=== PATIENT | female | born 1960 | race Caucasian/White ===

== ENCOUNTER 2017-08-03 11:22 | Observation (INO) ==
[2017-08-03 15:02] LABS: Basophils % 0.8 % (0.0-0.8); Eosinophils % 1.7 % (0.00-10.9); Hematocrit 43.4 VOL% (35.7-47.0); Hemoglobin 14.9 GM/DL (12.0-16.0); Immature Granulocytes % 0.5 %; Lymphocytes % 26.9 % (21.3-54.2); Mean Corpuscular HGB Conc 34.3 GM/DL (32-36); Mean Corpuscular Hemoglobin 31 PG (27-34); Mean Corpuscular Volume 91.4 FL (87-102); Mean Platelet Volume 10.9 FL (9.6-12.0); Monocytes % 9.7 % (1.7-12.7); Neutrophils % 60.4 % (38.7-73.9); Platelet Count 269 T/CUMM (130-400); Red Blood Count 4.75 MC/CUMM (3.8-5.5); Red Cell Distribution Width 12.1 % (9.3-17.3); White Blood Count 6.6 T/CUMM (4-12)
[2017-08-03 15:03] LABS: Basophils # 0.1 10*3/uL (0.0-0.2); Eosinophils # 0.1 10*3/uL (0.0-0.87); Immature Granulocytes Absolute 0.03 #; Lymphocytes # 1.8 10*3/uL (1.4-4.0); Monocytes # 0.6 10*3/uL (0.11-0.8)
[2017-08-03 15:10] LABS: INR 0.9; Partial Thromboplastin Time 23.4 SECS (0-40)
[2017-08-03 15:28] LABS: Alanine Aminotransferase 37 U/L (13-56); Albumin 4.2 G/DL (3.4-5.0); Alkaline Phosphatase 90 U/L (45-117); Aspartate Amino Transferase 20 U/L (0-37); Blood Urea Nitrogen 16 MG/DL (7-18); Calcium 8.6 MG/DL (8.5-10.1); Glucose 76 MG/DL (74-106); Osmolality,Calculated 278.4 MOS/KG (273-304); Potassium 4.2 MMOL/L (3.5-5.1); Sodium 140 MMOL/L (136-145); Total Protein 7.1 G/DL (6.4-8.3); Troponin I Only < 0.015 NG/ML (0.00-0.045)
[2017-08-03] MEDS ORDERED: ACETAMINOPHEN 325 MG TABLET PO PRN (17:03)
[2017-08-03] MEDS ORDERED: DOCUSATE SODIUM 100 MG CAPSULE PO PRN (17:03)
[2017-08-03] MEDS ORDERED: ONDANSETRON 4 MG/2 ML VIAL IV PRN (17:03)
[2017-08-03] MEDS ORDERED: MAGNESIUM SULF RIDER 4 GM in PREMIX 1 EACH IV PRN (17:03)
[2017-08-03] MEDS ORDERED: diphenhydrAMINE CAP 25 MG CAPSULE PO PRN (17:03)
[2017-08-03] MEDS ORDERED: ZALEPLON 5 MG CAPSULE PO PRN (17:03)
[2017-08-03] MEDS ORDERED: MAGNESIUM SULF RIDER 2 GM in PREMIX 1 EACH IV PRN (17:03)
[2017-08-03] MEDS ORDERED: guaiFENesin/DM ER 600-30 MG TABLET PO PRN (17:03)
[2017-08-03] MEDS ORDERED: POTASSIUM CHLORIDE 20 MEQ TABLET PO PRN (17:03)
[2017-08-03] MEDS ORDERED: CLOPIDOGREL 300 MG TABLET PO STA (17:14)
[2017-08-03] MEDS ORDERED: hydrALAZINE 20 MG/1 ML VIAL IV PRN (17:16)
[2017-08-03] MEDS ORDERED: CLOPIDOGREL 300 MG TABLET ONE (17:48)
[2017-08-03] MEDS ORDERED: PRAVASTATIN 40 MG TABLET PO SCH (21:00)
[2017-08-03] MEDS ORDERED: FAMOTIDINE 20 MG TABLET NG SCH (21:00)
[2017-08-03] MEDS ORDERED: LISINOPRIL 20 MG TABLET PO SCH (21:00)
[2017-08-03] MEDS ORDERED: CLOPIDOGREL 75 MG TABLET PO SCH (21:00)
[2017-08-03] MEDS ORDERED: ISOSORBIDE MONONITRATE 30 MG TABLET PO SCH (21:00)
[2017-08-03] MEDS: ASCORBIC ACID 500 MG TABLET PO SCH (21:34)
[2017-08-03] MEDS: APIXABAN 5 MG TABLET PO SCH (21:34)
[2017-08-03] MEDS: CARVEDILOL 3.125 MG TABLET PO SCH (21:34)
[2017-08-03 21:59] LABS: Troponin I Only < 0.015 NG/ML (0.00-0.045)
[2017-08-04 05:12] LABS: Basophils # 0.1 10*3/uL (0.0-0.2); Basophils % 1.1 % (0.0-0.8); Eosinophils # 0.1 10*3/uL (0.0-0.87); Eosinophils % 2.5 % (0.00-10.9); Hematocrit 41.5 VOL% (35.7-47.0); Hemoglobin 14.4 GM/DL (12.0-16.0); Immature Granulocytes % 0.2 %; Immature Granulocytes Absolute 0.01 #; Lymphocytes # 1.8 10*3/uL (1.4-4.0); Lymphocytes % 32.1 % (21.3-54.2); Mean Corpuscular HGB Conc 34.7 GM/DL (32-36); Mean Corpuscular Hemoglobin 31 PG (27-34); Mean Platelet Volume 10.7 FL (9.6-12.0); Monocytes # 0.6 10*3/uL (0.11-0.8); Monocytes % 10.6 % (1.7-12.7); Neutrophils % 53.5 % (38.7-73.9); Platelet Count 232 T/CUMM (130-400); Red Blood Count 4.61 MC/CUMM (3.8-5.5); Red Cell Distribution Width 12.4 % (9.3-17.3); White Blood Count 5.6 T/CUMM (4-12)
[2017-08-04 05:45] LABS: Calcium 8.4 MG/DL (8.5-10.1); Magnesium 2.1 MG/DL (1.8-2.4); Osmolality,Calculated 279.4 MOS/KG (273-304); Potassium 4.2 MMOL/L (3.5-5.1); Risk Ratio 2.94
[2017-08-04] MEDS ORDERED: amLODIPine 5 MG TABLET PO SCH (09:00)
[2017-08-04] MEDS: APIXABAN 5 MG TABLET PO SCH (09:21)
[2017-08-04] MEDS: ASCORBIC ACID 500 MG TABLET PO SCH (09:22)
[2017-08-04] MEDS: CARVEDILOL 3.125 MG TABLET PO SCH (09:22)
[2017-08-04 12:35] VITALS: BP 116/77
[2017-08-04] MEDS ORDERED: CLOPIDOGREL 75 MG TABLET PO SCH (21:00)
== END 2017-08-04 16:04 | disposition home or self-care (01) ==
LOC: N.EDINP 11:22 → N.ED 11:22 → N.EDINP 18:11 → N.TELEN 18:21
PROVIDERS: ADMIT Internal Medicine Clinical Cardiac Electrophysiology; ATTEND Internal Medicine Clinical Cardiac Electrophysiology

== ENCOUNTER 2019-09-12 18:18 | Inpatient (IN) ==
[2019-09-12] MEDS ORDERED: DILTIAZEM 50 MG/10 ML VIAL IV STA (18:45)
[2019-09-12] MEDS ORDERED: ALUM/MAG/SIMETH/LIDO VISC 1:1 30 ML BOTTLE PO STA (18:45)
[2019-09-12] MEDS ORDERED: ASPIRIN 325 MG TABLET PO STA (18:45)
[2019-09-12] MEDS ORDERED: ONDANSETRON 4 MG/2 ML VIAL IV STA (18:45)
[2019-09-12 19:00] LABS: Basophils # 0.1 10*3/uL (0.0-0.2); Basophils % 0.6 % (0.0-0.8); Eosinophils # 0.2 10*3/uL (0.0-0.87); Eosinophils % 1.8 % (0.00-10.9); Hematocrit 47.4 VOL% (35.7-47.0); Hemoglobin 15.9 GM/DL (12.0-16.0); Immature Granulocytes % 0.2 %; Immature Granulocytes Absolute 0.02 #; Lymphocytes # 2.3 10*3/uL (1.4-4.0); Lymphocytes % 27.7 % (21.3-54.2); Mean Corpuscular HGB Conc 33.5 GM/DL (32-36); Mean Corpuscular Volume 96.3 FL (87-102); Mean Platelet Volume 9.9 FL (9.6-12.0); Monocytes % 9.8 % (1.7-12.7); Neutrophils % 59.9 % (38.7-73.9); Platelet Count 251 T/CUMM (130-400); Red Blood Count 4.92 MC/CUMM (3.8-5.5); Red Cell Distribution Width 13.3 % (9.3-17.3); White Blood Count 8.4 T/CUMM (4-12)
[2019-09-12] MEDS ORDERED: dilTIAZem Drip 125 MG/125 ML PREMIX IV SCH (19:00)
[2019-09-12 19:20] LABS: INR 2.1
[2019-09-12 19:23] LABS: PT Patient Result 22.6 SECS (9.6-12.2)
[2019-09-12 19:37] LABS: Alanine Aminotransferase 49 U/L (13-56); Albumin 4.1 G/DL (3.4-5.0); Alkaline Phosphatase 119 U/L (45-117); Aspartate Amino Transferase 22 U/L (0-37); Bilirubin,Total < 0.39 MG/DL (0.2-1.0); Blood Urea Nitrogen 21 MG/DL (7-18); Calcium 9.2 MG/DL (8.5-10.1); Estimated Glom Filtration Rate 107 ML/MIN; Glucose 107 MG/DL (74-106); Total Protein 7.5 G/DL (6.4-8.3)
[2019-09-12] MEDS ORDERED: METOPROLOL TARTRATE 5 MG/5 ML VIAL IV STA (20:13)
[2019-09-12] MEDS ORDERED: METOPROLOL TARTRATE 5 MG/5 ML VIAL IV ONE (20:14)
[2019-09-12] MEDS ORDERED: ACETAMINOPHEN 325 MG TABLET PO PRN (20:37)
[2019-09-13] MEDS ORDERED: predniSONE 10 MG TABLET PO PRN (07:35)
[2019-09-13] MEDS ORDERED: NITROGLYCERIN SL 0.4 MG TABLET SL PRN (07:35)
[2019-09-13] MEDS ORDERED: amLODIPine 5 MG TABLET PO SCH (09:00)
[2019-09-13] MEDS ORDERED: PANTOPRAZOLE 40 MG TABLET PO SCH (09:00)
[2019-09-13] MEDS ORDERED: predniSONE 5 MG TABLET PO SCH (09:00)
[2019-09-13] MEDS ORDERED: FOLIC ACID 1 MG TABLET PO SCH (09:00)
[2019-09-13] MEDS ORDERED: ASCORBIC ACID 500 MG TABLET PO SCH (09:00)
[2019-09-13] MEDS ORDERED: RANOLAZINE 500 MG TABLET PO ONE (09:20)
[2019-09-13] MEDS ORDERED: METOPROLOL TARTRATE 25 MG TABLET PO SCH (09:30)
[2019-09-13 12:10] VITALS: BP 120/79
[2019-09-13] MEDS ORDERED: WARFARIN 5 MG TABLET PO SCH (18:00)
[2019-09-13] MEDS ORDERED: CLOPIDOGREL 75 MG TABLET PO SCH (21:00)
[2019-09-13] MEDS ORDERED: ISOSORBIDE MONONITRATE 30 MG TABLET PO SCH (21:00)
[2019-09-13] MEDS ORDERED: SIMVASTATIN 20 MG TABLET PO SCH (21:00)
[2019-09-13] MEDS ORDERED: lisinopriL 20 MG TABLET PO SCH (21:00)
== END 2019-09-13 16:30 | disposition home or self-care (01) | DRG 310 ==
LOC: N.ED 18:18 → N.EDINP 20:37 → SUPCPDRO 20:37 → N.EDINP 22:17 → N.TELES 22:32
PROVIDERS: ADMIT Internal Medicine Geriatric Medicine; ATTEND Internal Medicine Geriatric Medicine

== ENCOUNTER 2020-06-28 09:05 | Observation (INO) ==
[2020-06-28] MEDS ORDERED: DILTIAZEM 50 MG/10 ML VIAL IV STA (09:57)
[2020-06-28 10:26] LABS: Basophils % 0.4 % (0.0-0.8); Eosinophils % 0.7 % (0.00-10.9); Hemoglobin 17.5 GM/DL (12.0-16.0); Immature Granulocytes % 0.4 %; Immature Granulocytes Absolute 0.01 #; Lymphocytes # 0.9 10*3/uL (1.4-4.0); Lymphocytes % 31.9 % (21.3-54.2); Mean Corpuscular Volume 91.1 FL (87-102); Mean Platelet Volume 9.3 FL (9.6-12.0); Monocytes % 12.5 % (1.7-12.7); Neutrophils % 54.1 % (38.7-73.9); Platelet Count 175 T/CUMM (130-400); Red Blood Count 5.49 MC/CUMM (3.8-5.5); Red Cell Distribution Width 13.2 % (9.3-17.3); White Blood Count 2.7 T/CUMM (4-12)
[2020-06-28] MEDS: dilTIAZem Drip 125 MG/125 ML PREMIX IV SCH (10:30)
[2020-06-28 10:36] LABS: INR 3.7
[2020-06-28 10:55] LABS: Albumin 3.6 G/DL (3.4-5.0); Bilirubin,Total 0.5 MG/DL (0.2-1.0); Calcium 8.7 MG/DL (8.5-10.1); Osmolality,Calculated 277.4 MOS/KG (273-304); Total Protein 6.8 G/DL (6.4-8.3)
[2020-06-28] MEDS ORDERED: MAGNESIUM SULF RIDER 4 GM in PREMIX 1 EACH IV PRN (11:10)
[2020-06-28] MEDS ORDERED: ONDANSETRON 4 MG/2 ML VIAL IV PRN (11:10)
[2020-06-28] MEDS ORDERED: MAGNESIUM SULF RIDER 2 GM in PREMIX 1 EACH IV PRN (11:10)
[2020-06-28] MEDS: SODIUM CHLORIDE 0.45% 1,000 ML IV SCH ×3 (11:30→22:53)
[2020-06-28] MEDS ORDERED: NITROGLYCERIN SL 0.4 MG TABLET SL PRN (11:33)
[2020-06-28] MEDS ORDERED: RANOLAZINE 500 MG TABLET PO ONE (12:37)
[2020-06-28] MEDS: METOPROLOL TARTRATE 25 MG TABLET PO SCH ×2 (15:01→20:36)
[2020-06-28] MEDS ORDERED: WARFARIN 5 MG TABLET PO SCH (18:00)
[2020-06-28] MEDS: ASCORBIC ACID 500 MG TABLET PO SCH (20:36)
[2020-06-28] MEDS ORDERED: ISOSORBIDE MONONITRATE 30 MG TABLET PO SCH (21:00)
[2020-06-28] MEDS ORDERED: lisinopriL 20 MG TABLET PO SCH (21:00)
[2020-06-28] MEDS ORDERED: ROSUVASTATIN 10 MG TABLET PO SCH (21:00)
[2020-06-28] MEDS ORDERED: CLOPIDOGREL 75 MG TABLET PO SCH (21:00)
[2020-06-29] MEDS: dilTIAZem Drip 125 MG/125 ML PREMIX IV SCH (00:50)
[2020-06-29] MEDS: METOPROLOL TARTRATE 25 MG TABLET PO SCH (02:11)
[2020-06-29 06:02] LABS: Basophils % 0.6 % (0.0-0.8); Eosinophils # 0.1 10*3/uL (0.0-0.87); Eosinophils % 0.9 % (0.00-10.9); Hematocrit 38.9 VOL% (35.7-47.0); Hemoglobin 13.3 GM/DL (12.0-16.0); Immature Granulocytes % 0.4 %; Immature Granulocytes Absolute 0.02 #; Lymphocytes # 2.1 10*3/uL (1.4-4.0); Lymphocytes % 38.8 % (21.3-54.2); Mean Corpuscular HGB Conc 34.2 GM/DL (32-36); Mean Platelet Volume 9.8 FL (9.6-12.0); Monocytes % 14.7 % (1.7-12.7); Neutrophils % 44.6 % (38.7-73.9); Platelet Count 233 T/CUMM (130-400); Red Blood Count 4.14 MC/CUMM (3.8-5.5); Red Cell Distribution Width 13.2 % (9.3-17.3); White Blood Count 5.4 T/CUMM (4-12)
[2020-06-29 06:04] LABS: Calcium 8.4 MG/DL (8.5-10.1); Osmolality,Calculated 279.4 MOS/KG (273-304); Potassium 3.9 MMOL/L (3.5-5.1)
[2020-06-29 06:12] LABS: Risk Ratio 7.44; Troponin I < 0.015 NG/ML (0.00-0.045); VLDL CHOLESTEROL 120.2 MG/DL
[2020-06-29] MEDS: SODIUM CHLORIDE 0.45% 1,000 ML IV SCH (06:55)
[2020-06-29 07:01] LABS: Anisocytosis 1+; Platelet Estimate Normal; Spherocytes Few
[2020-06-29] MEDS ORDERED: MIDAZOLAM 10 MG/2 ML VIAL ONE (08:19)
[2020-06-29] MEDS ORDERED: MIDAZOLAM 10 MG/2 ML VIAL IV ONE (08:29)
[2020-06-29] MEDS ORDERED: PANTOPRAZOLE 40 MG TABLET PO SCH (09:00)
[2020-06-29] MEDS ORDERED: VITAMIN E 400 UNIT CAPSULE PO SCH (09:00)
[2020-06-29] MEDS ORDERED: amLODIPine 5 MG TABLET PO SCH (09:00)
[2020-06-29] MEDS ORDERED: predniSONE 5 MG TABLET PO SCH (09:00)
[2020-06-29] MEDS ORDERED: FOLIC ACID 1 MG TABLET PO SCH (09:00)
[2020-06-29] MEDS ORDERED: OMEPRAZOLE 20 MG PO SCH (09:00)
[2020-06-29] MEDS ORDERED: METOPROLOL TARTRATE 25 MG TABLET PO SCH (10:00)
[2020-06-29 12:36] VITALS: BP 135/73
[2020-06-29] MEDS: ASCORBIC ACID 500 MG TABLET PO SCH (12:37)
[2020-07-02] MEDS ORDERED: METHOTREXATE 2.5 MG TABLET PO SCH (09:00)
[2020-07-02] MEDS ORDERED: WARFARIN 5 MG TABLET PO SCH (18:00)
== END 2020-06-29 12:22 | disposition home or self-care (01) ==
LOC: N.EDINP 09:05 → N.ED 09:05 → N.TELEN 13:50
PROVIDERS: ADMIT Internal Medicine Cardiovascular Disease; ATTEND Internal Medicine Cardiovascular Disease

== ENCOUNTER 2020-10-15 02:59 | Observation (INO) ==
[2020-10-15] MEDS ORDERED: DILTIAZEM 50 MG/10 ML VIAL IV STA (03:21)
[2020-10-15] MEDS ORDERED: ONDANSETRON 4 MG/2 ML VIAL IV STA (03:21)
[2020-10-15] MEDS ORDERED: ASPIRIN 325 MG TABLET PO STA (03:21)
[2020-10-15] MEDS ORDERED: NITROGLYCERIN 2% OINT 1 INCH/GM PACK TOP STA (03:21)
[2020-10-15] MEDS ORDERED: MORPHINE 4 MG/1 ML VIAL IV STA (03:21)
[2020-10-15 03:23] LABS: Basophils # 0.1 10*3/uL (0.0-0.2); Basophils % 0.8 % (0.0-0.8); Eosinophils # 0.2 10*3/uL (0.0-0.87); Eosinophils % 2.3 % (0.00-10.9); Hematocrit 43.6 VOL% (35.7-47.0); Hemoglobin 14.3 GM/DL (12.0-16.0); Immature Granulocytes % 0.3 %; Immature Granulocytes Absolute 0.02 #; Lymphocytes # 1.9 10*3/uL (1.4-4.0); Mean Corpuscular HGB Conc 32.8 GM/DL (32-36); Mean Corpuscular Volume 95.8 FL (87-102); Mean Platelet Volume 10.1 FL (9.6-12.0); Monocytes % 10.9 % (1.7-12.7); Neutrophils % 57.7 % (38.7-73.9); Platelet Count 241 T/CUMM (130-400); Red Blood Count 4.55 MC/CUMM (3.8-5.5); Red Cell Distribution Width 13.4 % (9.3-17.3); White Blood Count 6.6 T/CUMM (4-12)
[2020-10-15] MEDS ORDERED: DILTIAZEM INJ 100 MG in SODIUM CHLORIDE 0.9% 100 ML IV SCH (03:30)
[2020-10-15 03:43] LABS: Albumin 3.5 G/DL (3.4-5.0); Bilirubin,Total 0.4 MG/DL (0.2-1.0); Calcium 8.8 MG/DL (8.5-10.1); INR 3.3; Osmolality,Calculated 278.8 MOS/KG (273-304); PT Patient Result 32.9 SECS (9.8-11.9); Potassium 4.1 MMOL/L (3.5-5.1)
[2020-10-15] MEDS ORDERED: GLUCAGON 1 MG VIAL IM PRN (04:48)
[2020-10-15] MEDS ORDERED: ACETAMINOPHEN 325 MG TABLET PO PRN (04:48)
[2020-10-15] MEDS ORDERED: DEXTROSE 50% 25 GM/50 ML VIAL IV PRN (04:48)
[2020-10-15] MEDS ORDERED: ONDANSETRON 4 MG/2 ML VIAL IV PRN (04:48)
[2020-10-15 12:09] VITALS: BP 98/51
[2020-10-15] MEDS ORDERED: CLOPIDOGREL 75 MG TABLET PO SCH (21:00)
[2020-10-15] MEDS ORDERED: ROSUVASTATIN 10 MG TABLET PO SCH (21:00)
== END 2020-10-15 14:01 | disposition home or self-care (01) ==
LOC: N.EDINP 02:59 → N.ED 02:59 → N.EDINP 05:42 → N.TELES 06:13
PROVIDERS: ADMIT Internal Medicine; ATTEND Internal Medicine

== ENCOUNTER 2021-05-04 23:38 | Observation (INO) ==
[2021-05-05] MEDS ORDERED: DILTIAZEM 50 MG/10 ML VIAL IV STA ×2 (00:06→00:44)
[2021-05-05] MEDS ORDERED: ASPIRIN 325 MG TABLET PO STA (00:06)
[2021-05-05 00:10] LABS: Basophils # 0.1 10*3/uL (0.0-0.2); Basophils % 0.7 % (0.0-0.8); Eosinophils # 0.1 10*3/uL (0.0-0.87); Eosinophils % 1.8 % (0.00-10.9); Hematocrit 43.7 VOL% (35.7-47.0); Hemoglobin 14.5 GM/DL (12.0-16.0); Immature Granulocytes % 0.1 %; Immature Granulocytes Absolute 0.01 #; Lymphocytes # 2.2 10*3/uL (1.4-4.0); Lymphocytes % 31.5 % (21.3-54.2); Mean Corpuscular HGB Conc 33.2 GM/DL (32-36); Mean Corpuscular Volume 94.6 FL (87-102); Mean Platelet Volume 9.9 FL (9.6-12.0); Monocytes % 12.2 % (1.7-12.7); Neutrophils % 53.7 % (38.7-73.9); Platelet Count 242 T/CUMM (130-400); Red Blood Count 4.62 MC/CUMM (3.8-5.5); Red Cell Distribution Width 13.7 % (9.3-17.3); White Blood Count 6.8 T/CUMM (4-12)
[2021-05-05 00:18] LABS: INR 1.7
[2021-05-05 00:43] LABS: Albumin 3.9 G/DL (3.4-5.0); Bilirubin,Total 0.7 MG/DL (0.20-1.00); Calcium 8.9 MG/DL (8.5-10.1); Osmolality,Calculated 277.8 MOS/KG (273-304); Potassium 3.9 MMOL/L (3.5-5.1); Total Protein 6.8 G/DL (6.4-8.2)
[2021-05-05] MEDS ORDERED: SODIUM CHLORIDE 0.9% 500 ML IV STA (01:01)
[2021-05-05] MEDS: DILTIAZEM INJ 100 MG in SODIUM CHLORIDE 0.9% 100 ML IV SCH (01:30)
[2021-05-05] MEDS ORDERED: MAGNESIUM SULF RIDER 2 GM/50 ML PREMIX IV PRN (01:41)
[2021-05-05] MEDS ORDERED: DEXTROSE 50% 25 GM/50 ML VIAL IV PRN (01:41)
[2021-05-05] MEDS ORDERED: GLUCAGON 1 MG VIAL IM PRN (01:41)
[2021-05-05] MEDS ORDERED: MAGNESIUM SULF RIDER 4 GM/100 ML PREMIX IV PRN (01:41)
[2021-05-05] MEDS ORDERED: POTASSIUM CHLORIDE 20 MEQ TABLET PO PRN (01:43)
[2021-05-05] MEDS ORDERED: SIMETHICONE CHEW 125 MG TABLET PO PRN (01:43)
[2021-05-05] MEDS ORDERED: POTASSIUM CHLORIDE RIDER 10 MEQ/100 ML PREMIX IV PRN (01:43)
[2021-05-05] MEDS ORDERED: DOCUSATE SODIUM 100 MG CAPSULE PO PRN (01:43)
[2021-05-05] MEDS ORDERED: ONDANSETRON 4 MG/2 ML VIAL IV PRN (01:43)
[2021-05-05 03:14] LABS: Calcium 8.2 MG/DL (8.5-10.1); Osmolality,Calculated 280.5 MOS/KG (273-304); Potassium 4.2 MMOL/L (3.5-5.1); Risk Ratio 3.45; VLDL Cholesterol 92.4 MG/DL
[2021-05-05] MEDS: PANTOPRAZOLE 40 MG TABLET PO SCH (09:34)
[2021-05-05] MEDS: DILTIAZEM 30 MG TABLET PO SCH ×3 (09:35→21:14)
[2021-05-05] MEDS: ASCORBIC ACID 500 MG TABLET PO SCH ×2 (09:35→21:14)
[2021-05-05] MEDS ORDERED: ALBUTEROL 2.5 MG/3 ML NEB RESP TX ONE (13:54)
[2021-05-05] MEDS: ALBUTEROL 2.5 MG/3 ML NEB RESP TX SCH ×2 (14:34→19:40)
[2021-05-05] MEDS ORDERED: WARFARIN 5 MG TABLET PO SCH (18:00)
[2021-05-05] MEDS ORDERED: ISOSORBIDE MONONITRATE 30 MG TABLET PO SCH (21:00)
[2021-05-05] MEDS ORDERED: CLOPIDOGREL 75 MG TABLET PO SCH (21:00)
[2021-05-05] MEDS ORDERED: ROSUVASTATIN 10 MG TABLET PO SCH (21:00)
[2021-05-05] MEDS: ACETAMINOPHEN 325 MG TABLET PO PRN (21:20)
[2021-05-06] MEDS: ALBUTEROL 2.5 MG/3 ML NEB RESP TX SCH ×3 (00:17→07:35)
[2021-05-06 05:25] LABS: Basophils # 0.1 10*3/uL (0.0-0.2); Basophils % 0.7 % (0.0-0.8); Eosinophils # 0.1 10*3/uL (0.0-0.87); Eosinophils % 1.6 % (0.00-10.9); Hematocrit 39.9 VOL% (35.7-47.0); Hemoglobin 13.3 GM/DL (12.0-16.0); Immature Granulocytes % 0.4 %; Immature Granulocytes Absolute 0.03 #; Lymphocytes # 1.7 10*3/uL (1.4-4.0); Lymphocytes % 24.4 % (21.3-54.2); Mean Corpuscular HGB Conc 33.3 GM/DL (32-36); Mean Platelet Volume 9.7 FL (9.6-12.0); Monocytes % 10.8 % (1.7-12.7); Neutrophils % 62.1 % (38.7-73.9); Platelet Count 216 T/CUMM (130-400); Red Cell Distribution Width 13.8 % (9.3-17.3); White Blood Count 6.8 T/CUMM (4-12)
[2021-05-06 06:05] LABS: Calcium 8.2 MG/DL (8.5-10.1); Osmolality,Calculated 279.5 MOS/KG (273-304); Potassium 4.1 MMOL/L (3.5-5.1)
[2021-05-06] MEDS ORDERED: METHOTREXATE 2.5 MG TABLET PO SCH (06:25)
[2021-05-06] MEDS: DILTIAZEM INJ 100 MG in SODIUM CHLORIDE 0.9% 100 ML IV SCH (08:15)
[2021-05-06 08:28] VITALS: BP 143/70
[2021-05-06] MEDS: ACETAMINOPHEN 325 MG TABLET PO PRN (08:42)
[2021-05-06] MEDS: DILTIAZEM 30 MG TABLET PO SCH (08:42)
[2021-05-06] MEDS: PANTOPRAZOLE 40 MG TABLET PO SCH (08:42)
[2021-05-06] MEDS: ASCORBIC ACID 500 MG TABLET PO SCH (08:42)
[2021-05-06] MEDS ORDERED: WARFARIN 2.5 MG TABLET PO SCH (18:00)
== END 2021-05-06 10:33 | disposition home or self-care (01) ==
LOC: N.ED 23:38 → N.EDINP 23:38 → N.TELES 05-05 02:53
PROVIDERS: ADMIT Internal Medicine; ATTEND Internal Medicine

== ENCOUNTER 2021-11-14 19:33 | Observation (INO) ==
[2021-11-14] MEDS ORDERED: DILTIAZEM 50 MG/10 ML VIAL IV STA ×2 (19:51→20:09)
[2021-11-14 20:20] LABS: Basophils % 0.5 % (0.0-0.8); Eosinophils # 0.1 10*3/uL (0.0-0.87); Eosinophils % 1.5 % (0.00-10.9); Hematocrit 43.7 VOL% (35.7-47.0); Immature Granulocytes % 0.2 %; Immature Granulocytes Absolute 0.01 #; Lymphocytes # 1.4 10*3/uL (1.4-4.0); Lymphocytes % 24.2 % (21.3-54.2); Mean Corpuscular HGB Conc 34.3 GM/DL (32-36); Mean Corpuscular Volume 93.2 FL (87-102); Monocytes % 15.3 % (1.7-12.7); Neutrophils % 58.3 % (38.7-73.9); Platelet Count 219 T/CUMM (130-400); Red Blood Count 4.69 MC/CUMM (3.8-5.5); Red Cell Distribution Width 13.4 % (9.3-17.3); White Blood Count 5.8 T/CUMM (4-12)
[2021-11-14 20:30] LABS: INR 2.3; PT Patient Result 24.3 SECS (10.5-12.0)
[2021-11-14] MEDS: DILTIAZEM INJ 100 MG in SODIUM CHLORIDE 0.9% 100 ML IV SCH (20:51)
[2021-11-14 20:58] LABS: Albumin 3.7 G/DL (3.4-5.0); Bilirubin,Total 1.2 MG/DL (0.20-1.00); Calcium 9.1 MG/DL (8.5-10.1); Osmolality,Calculated 281.5 MOS/KG (273-304); Total Protein 7.2 G/DL (6.4-8.2)
[2021-11-14] MEDS ORDERED: ACETAMINOPHEN 325 MG TABLET PO PRN (22:39)
[2021-11-14] MEDS ORDERED: hydrALAZINE 20 MG/1 ML VIAL IV PRN (22:39)
[2021-11-14] MEDS ORDERED: ONDANSETRON 4 MG/2 ML VIAL IV PRN (22:39)
[2021-11-14] MEDS ORDERED: guaiFENesin/DM ER 600-30 MG TABLET PO PRN (22:39)
[2021-11-14] MEDS ORDERED: NICOTINE 21 MG/24 HR PATCH TRANSDERM PRN (22:39)
[2021-11-14] MEDS ORDERED: diphenhydrAMINE CAP 25 MG CAPSULE PO PRN (22:39)
[2021-11-14] MEDS ORDERED: ZALEPLON 5 MG CAPSULE PO PRN (22:39)
[2021-11-14] MEDS ORDERED: GLUCAGON 1 MG VIAL IM PRN (22:39)
[2021-11-14] MEDS ORDERED: DEXTROSE 10% 250 ML BAG IV PRN (22:44)
[2021-11-15] MEDS ORDERED: ALBUTEROL/IPRATROPIUM 3 ML NEB RESP TX PRN (00:48)
[2021-11-15] MEDS: DILTIAZEM INJ 100 MG in SODIUM CHLORIDE 0.9% 100 ML IV SCH (05:10)
[2021-11-15 05:22] LABS: Basophils % 0.6 % (0.0-0.8); Eosinophils # 0.1 10*3/uL (0.0-0.87); Eosinophils % 1.8 % (0.00-10.9); Hematocrit 46.7 VOL% (35.7-47.0); Hemoglobin 15.3 GM/DL (12.0-16.0); Immature Granulocytes % 0.2 %; Immature Granulocytes Absolute 0.01 #; Lymphocytes # 1.6 10*3/uL (1.4-4.0); Lymphocytes % 30.1 % (21.3-54.2); Mean Corpuscular HGB Conc 32.8 GM/DL (32-36); Mean Corpuscular Volume 96.1 FL (87-102); Mean Platelet Volume 10.2 FL (9.6-12.0); Monocytes % 13.1 % (1.7-12.7); Neutrophils % 54.2 % (38.7-73.9); Platelet Count 205 T/CUMM (130-400); Red Blood Count 4.86 MC/CUMM (3.8-5.5); Red Cell Distribution Width 13.3 % (9.3-17.3); White Blood Count 5.4 T/CUMM (4-12)
[2021-11-15 05:27] LABS: INR 2.7; PT Patient Result 27.9 SECS (10.5-12.0); Partial Thromboplastin Time 40.9 SECS (23.8-32.1)
[2021-11-15] MEDS ORDERED: MELATONIN 3 MG TABLET PO PRN (08:14)
[2021-11-15] MEDS ORDERED: FOLIC ACID 800 MCG PO SCH (09:00)
[2021-11-15] MEDS ORDERED: PANTOPRAZOLE 40 MG TABLET PO SCH (09:00)
[2021-11-15 09:11] VITALS: BP 124/73
[2021-11-15] MEDS ORDERED: WARFARIN 5 MG TABLET PO SCH (19:00)
[2021-11-15] MEDS ORDERED: CLOPIDOGREL 75 MG TABLET PO SCH (21:00)
[2021-11-15] MEDS ORDERED: ROSUVASTATIN 10 MG TABLET PO SCH (21:00)
[2021-11-15] MEDS ORDERED: ISOSORBIDE MONONITRATE 30 MG TABLET PO SCH (21:00)
== END 2021-11-15 12:54 | disposition home or self-care (01) ==
LOC: N.TELES 19:33 → N.ED 19:33 → N.TELES 23:43
PROVIDERS: ADMIT Phlebology; ATTEND Phlebology

== ENCOUNTER 2022-01-26 02:47 | Observation (INO) ==
[2022-01-26] MEDS ORDERED: DILTIAZEM 25 MG/5 ML VIAL IV STA (03:23)
[2022-01-26 03:26] LABS: Basophils % 0.2 % (0.0-0.8); Eosinophils # 0.1 10*3/uL (0.0-0.87); Eosinophils % 0.7 % (0.00-10.9); Hematocrit 45.5 VOL% (35.7-47.0); Hemoglobin 15.5 GM/DL (12.0-16.0); Immature Granulocytes % 0.6 %; Immature Granulocytes Absolute 0.07 #; Lymphocytes # 1.4 10*3/uL (1.4-4.0); Lymphocytes % 11.2 % (21.3-54.2); Mean Corpuscular HGB Conc 34.1 GM/DL (32-36); Mean Corpuscular Volume 94.4 FL (87-102); Mean Platelet Volume 10.2 FL (9.6-12.0); Monocytes % 8.4 % (1.7-12.7); Neutrophils % 78.9 % (38.7-73.9); Platelet Count 249 T/CUMM (130-400); Red Blood Count 4.82 MC/CUMM (3.8-5.5); Red Cell Distribution Width 13.3 % (9.3-17.3); White Blood Count 12.1 T/CUMM (4-12)
[2022-01-26] MEDS ORDERED: ONDANSETRON 4 MG/2 ML VIAL IV STA (03:33)
[2022-01-26] MEDS ORDERED: SODIUM CHLORIDE 0.9% 500 ML IV STA (03:33)
[2022-01-26 03:36] LABS: INR 3.2; PT Patient Result 32.2 SECS (10.5-12.0)
[2022-01-26] MEDS ORDERED: PROMETHAZINE INJ 12.5 MG in SODIUM CHLORIDE 0.9% 50 ML IV STA (04:14)
[2022-01-26] MEDS ORDERED: PROMETHAZINE 25 MG/1 ML VIAL ONE (04:25)
[2022-01-26] MEDS ORDERED: DILTIAZEM INJ 100 MG in SODIUM CHLORIDE 0.9% 100 ML IV SCH (04:30)
[2022-01-26 04:32] LABS: Albumin 4.1 G/DL (3.4-5.0); Bilirubin,Total 0.5 MG/DL (0.20-1.00); Calcium 9.3 MG/DL (8.5-10.1); Osmolality,Calculated 285.3 MOS/KG (273-304); Potassium 4.1 MMOL/L (3.5-5.1); Total Protein 7.1 G/DL (6.4-8.2)
[2022-01-26] MEDS ORDERED: ACETAMINOPHEN 325 MG TABLET PO PRN (05:13)
[2022-01-26] MEDS ORDERED: SIMETHICONE CHEW 125 MG TABLET PO PRN (05:13)
[2022-01-26] MEDS ORDERED: ONDANSETRON 4 MG/2 ML VIAL IV PRN (05:13)
[2022-01-26] MEDS ORDERED: GLUCAGON 1 MG VIAL IM PRN (05:13)
[2022-01-26] MEDS ORDERED: DEXTROSE 10% 250 ML BAG IV PRN (05:20)
[2022-01-26 05:30] LABS: Thyroid Stimulating Hormone 1.69 uIU/ml (0.358-3.74)
[2022-01-26] MEDS ORDERED: MELATONIN 3 MG TABLET PO PRN (06:56)
[2022-01-26] MEDS: ISOSORBIDE MONONITRATE 30 MG TABLET PO SCH (08:33)
[2022-01-26] MEDS: lisinopriL 20 MG TABLET PO SCH (08:34)
[2022-01-26] MEDS: PANTOPRAZOLE 40 MG TABLET PO SCH (08:34)
[2022-01-26] MEDS ORDERED: amLODIPine 10 MG TABLET PO SCH (09:00)
[2022-01-26] MEDS ORDERED: SODIUM CHLORIDE 0.9% 1,000 ML IV SCH (09:30)
[2022-01-26] MEDS: DILTIAZEM 30 MG TABLET PO SCH ×2 (09:47→12:50)
[2022-01-26 11:15] LABS: RBC,Urine 2 /HPF (0-4); Squamous Epithelial Cell,Urine Occasional /HPF (0-10)
[2022-01-26 11:16] LABS: Bilirubin,Urine Negative (Negative); Blood, Urine Trace mg/dL (Negative); Glucose,Urine (UA) Negative (Negative); Ketones,Urine Negative (Negative); Nitrite,Urine Negative (Negative); Protein,Urine Negative (Negative); Urine Appearance Clear (Clear); Urine Color Yellow (Yellow); Urine pH 7.5 (4.5-8.0)
[2022-01-26] MEDS ORDERED: WARFARIN 5 MG TABLET PO SCH (18:00)
[2022-01-26] MEDS ORDERED: DILTIAZEM CD 120 MG CAPSULE PO SCH (21:00)
[2022-01-26] MEDS ORDERED: ROSUVASTATIN 10 MG TABLET PO SCH (21:00)
[2022-01-26] MEDS ORDERED: CLOPIDOGREL 75 MG TABLET PO SCH (21:00)
[2022-01-27 04:39] LABS: Basophils % 0.6 % (0.0-0.8); Eosinophils # 0.1 10*3/uL (0.0-0.87); Eosinophils % 2.1 % (0.00-10.9); Hemoglobin 14.1 GM/DL (12.0-16.0); Immature Granulocytes % 0.4 %; Immature Granulocytes Absolute 0.02 #; Lymphocytes # 1.6 10*3/uL (1.4-4.0); Lymphocytes % 31.1 % (21.3-54.2); Mean Corpuscular HGB Conc 32.8 GM/DL (32-36); Mean Corpuscular Volume 97.1 FL (87-102); Mean Platelet Volume 10.5 FL (9.6-12.0); Monocytes # 0.7 10*3/uL (0.11-0.8); Monocytes % 12.5 % (1.7-12.7); Neutrophils % 53.3 % (38.7-73.9); Platelet Count 227 T/CUMM (130-400); Red Blood Count 4.43 MC/CUMM (3.8-5.5); Red Cell Distribution Width 13.5 % (9.3-17.3); White Blood Count 5.3 T/CUMM (4-12)
[2022-01-27 04:49] LABS: INR 2.4; PT Patient Result 25.1 SECS (10.5-12.0)
[2022-01-27 05:00] LABS: Calcium 8.3 MG/DL (8.5-10.1); Osmolality,Calculated 282.4 MOS/KG (273-304); Potassium 4.2 MMOL/L (3.5-5.1)
[2022-01-27] MEDS ORDERED: METHOTREXATE 2.5 MG TABLET PO SCH (06:02)
[2022-01-27 07:56] VITALS: BP 133/67
[2022-01-27] MEDS: ISOSORBIDE MONONITRATE 30 MG TABLET PO SCH (08:46)
[2022-01-27] MEDS: PANTOPRAZOLE 40 MG TABLET PO SCH (08:47)
[2022-01-27] MEDS: lisinopriL 20 MG TABLET PO SCH (08:47)
[2022-01-30] MEDS ORDERED: WARFARIN 5 MG TABLET PO SCH (18:00)
== END 2022-01-27 10:40 | disposition home or self-care (01) ==
LOC: N.TELES 02:47 → N.ED 02:47 → N.TELES 06:15
PROVIDERS: ADMIT Emergency Medicine; ATTEND Emergency Medicine